=== PATIENT | male | born 1995 | race Two or more races ===

== ENCOUNTER 2021-07-10 18:04 | Emergency (ER) | payer OTHER ==
[2021-07-10 18:11] VITALS: BP 143/78; PULSE 71; TEMP 97; BMI 35.9
== END 2021-07-10 20:26 | disposition home or self-care (01) ==
LOC: JERFT 18:04
DX: S61.541A Puncture wound with foreign body of right wrist, initial encounter (principal); W45.8XXA Other foreign body or object entering through skin, initial encounter
CPT/HCPCS: 73110-TC-RT-FY; 99283-25